=== PATIENT | female | born 1960 | race Caucasian/White ===

== ENCOUNTER 2024-10-15 10:51 | Outpatient (AMB) | payer BC, SELFPAY ==
--- NOTE | 2024-10-15 11:08 | A.OFFPC_ITS ---
Vital Signs 10/15/24 11:09 Height 5 ft 2.2 in Weight 210 lb 6 oz BMI 38.2 BP 120/70 Blood Pressure Location Lt brachial Position Sitting Pulse 78 Pulse Source Pulse Oximeter Temp 97.3 F Temp Source Temporal Artery Scan Pulse Oximetry (%) 98 Oxygen Delivery Method Room Air Intake Visit Reasons: establish care Intake Note: Patient is a new patient here to establish care for Wellness visit, Balled spot . Transferring care from [facility]. Medical records have been requested and have not received. Fire Extinguisher Mechanic Required: No C Python Developer: Not Required per policy Accompanied by: Self / Same As Patient Allergies No Known Allergies Allergy (Verified 10/15/24 11:21) Medication List - Last Reconciled 10/15/24 by Kaylyn Delgado PA-C No Known Home Meds Tobacco use date assessed: 10/15/24 Fall risk assessment: No Falls in past year Last assessed Fall Risk: 10/15/24 Dental Screening Dental Screen Date: 10/15/24 Did you have a dental visit in the last 12 months?: Yes Did you have a dental problem in the last 6 months where you did not have access to dental care?: No Was dental information given to patient?: Patient has dentist HPI establish care HPI Details 64-year-old female coming to the office with the 1st time. Presenting with hair thinning. Noteworthy findings include two observable bald spots on the side of her scalp, first identified during her hair appointment on August 13. 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 Emotional stressors are significant, including recent familial bereavements, which may play a role in her current medical concerns. Patient follows with [facility] for colonoscopy, mammogram and Pap smears. 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 1. Little interest or pleasure in doing things: not at all 2. Feeling down, depressed, or hopeless: not at all 3. Trouble falling or staying asleep, or sleeping too much: not at all 4. Feeling tired or having little energy: not at all 5. Poor appetite or overeating: not at all 6. Feeling bad about yourself - or that you are a failure or have let yourself or your family down: not at all 7. Trouble concentrating on things, such as reading the newspaper or watching television: not at all 8. Moving or speaking so slowly that other people could have noticed. Or the opposite - being so fidgety or restless that you have been moving around a lot more than usual: not at all 9. Thoughts that you would be better off or of hurting yourself in some way: not at all Total score: 0 Depression Screening Interpretation: Negative Depression Screening Done: Yes Source: Developed by Drs. Stoney Govea, Vicky Salvador, Travon Owen and colleagues, with an educational cruz from [employer]. Thrive Questionnaire Date Thrive assessed: 10/09/24 I am a: Patient What is your living situation today?: I have a steady place to live Within the past 12 months, did the food you bought not last and you didn't have the money to get more?: Never true Within the past 12 months, did you worry whether your food would run out before you got money to buy more?: Never true Do you have trouble paying for medicines?: No Do you have trouble getting transportation to medical appointments?: No Do you have trouble paying your heating and electricity bill?: No Do you have trouble taking care of your child, family member or friend?: No Do you have trouble with day-to-day activities such as bathing, preparing meals, shopping, managing finances, etc.?: No Are you currently unemployed and looking for a job?: No Are you interested in more education?: No Please select the resources that you would like help with: None Currently or been in a relationship where the following occur: No concerns reported THRIVE Score: 0 AUDIT C Alcohol Use Questionnaire (AUDIT-C) 1. How often do you have a drink containing alcohol?: Monthly or less 2. How many drinks containing alcohol do you have on a typical day when you are drinking?: 1 or 2 3. How often do you have six or more drinks on one occasion?: Never Total Score: 1 TOMMIE-7 AMB Questionnaire TOMMIE-7 Date TOMMIE - 7 assessed: 10/15/24 Feeling nervous, anxious, or on edge: 0 = Not at all Not being able to stop or control worryin = Not at all Worrying too much about different things: 0 = Not at all Trouble relaxin = Not at all Being so restless that it is hard to sit still: 0 = Not at all Becoming easily annoyed or irritable: 0 = Not at all Feeling afraid as if something awful might happen: 0 = Not at all Total TOMMIE-7 score (0-4 normal; 5-9 mild; 10-14 moderate; 15-21 severe): 0 Source: Developed by Drs. Stoney Govea, Vicky Salvador, Travon Owen and colleagues, with an educational cruz from [employer]. TOMMIE-7 Assessment Billing TOMMIE-7 Assessment Tool: TOMMIE-7 Assessment 20765 Review of Systems Const Denies body aches, Denies chills, Denies fever(s), Denies headache(s) and Denies poor appetite Eyes Reports no additional complaints ENT Denies dysphagia, Denies dizziness, Denies headache(s) and Denies odynophagia Card Denies chest pain, Denies syncope, Denies edema, Denies irregular heart rhythm, Denies lightheadedness and Denies dyspnea Resp Denies cough and Denies dyspnea GI Denies abdominal pain, Denies constipation, Denies dysphagia, Denies diarrhea, Denies nausea, Denies odynophagia and Denies vomiting Reports no additional complaints Musc Reports no additional complaints and Denies abnormal gait Skin/Breast Reports system reviewed and no additional complaints, except as documented Neuro Denies abnormal gait, Denies dizziness, Denies syncope and Denies headache(s) Psych Reports no additional complaints Physical exam (Primary Care) Vital Signs: Last Vital Signs Temp 97.3 F 10/15/24 11:09 Pulse 78 10/15/24 11:09 BP 120/70 10/15/24 11:09 Pulse Ox 98 10/15/24 11:09 Oxygen Delivery Method Room Air 10/15/24 11:09 BMI result Body Mass Index 38.2 Tobacco/Smoking Status: Tobacco use Status Tobacco use date assessed 10/15/24 10/15/24 11:09 Patient Tobacco Use Status Never used Tobacco 10/15/24 11:19 e-Cigarette/Vaping Use Never Used 10/15/24 11:19 PHQ-9: PHQ-9 Score PHQ-9: Total score 0 10/15/24 14:58 Depression Screening Interpretation: Negative Thrive Assessment: Date of Thrive Assessment Date Thrive assessed 10/09/24 10/15/24 11:09 Currently or been in a relationship where the following occur: No concerns reported Const General: cooperative, healthy appearing, comfortable and no acute distress Orientation/consciousness: patient oriented x3 HENMT Head: Yes normocephalic Ears: hearing grossly normal bilaterally General nose exam: Normal external nose present Eyes General: appearance normal, both eyes and all related structures Conjunctivae: conjunctivae normal Neck Neck: Yes full ROM and Yes no lymphadenopathy Resp Effort & Inspection: normal respiratory effort Auscultation: clear to auscultation bilaterally, no crackles, no rales, no rhonchi and no wheezes Cardio Rate: regular rate Rhythm: regular rhythm Skin Other: Areas of thin hair behind bilateral ears General skin exam: no rashes or lesions noted Neuro General: patient oriented x3 Gait exam (Neuro): Normal gait present Extrem General: Yes normal to inspection, Yes full ROM and No edema Psych Affect: normal affect Attitude: cooperative Insight: Good insight present (Psych) Judgement: Good judgement present (Psych) Coding Level of Care Code New Pt Level 4 (67129) Diagnoses Encounter to establish care Z76.89 Obesity (BMI 30-39.9) E66.9 Hair loss L65.9 Anxiety F41.9 Screening for diabetes mellitus Z13.1 Screening for hypercholesterolemia Z13.220 Additional Codes TOMMIE-7 Assessment Billing - TOMMIE-7 Assessment Tool: TOMMIE-7 Assessment 64153 ([id number]) Assessment & Plan Assessment & Plan (1) Encounter to establish care: Code(s): Z76.89 - Persons encountering health services in other specified circumstances Category: Medical Plan: I ordered for routine blood work to be completed before next visit. She will plan to follow up in 2 months for annual exam or sooner if needed. We discussed screening recommendations and patient is up-to-date mainly through her [facility] providers. (2) Obesity (BMI 30-39.9): Code(s): E66.9 - Obesity, unspecified Category: Medical Plan: Healthy diet and regular exercise is encouraged. Patient inquired about the use of GLP 1 injections today. We discussed at length risks and benefits of this medications as well as side effects and monitoring scheduled. Patient was provided with informational packet and she will reach out she would like to try these medications. (3) Hair loss: Code(s): L65.9 - Nonscarring hair loss, unspecified Category: Medical Plan: Patient having hair thinning. On exam there are 2 areas of thin hair without any obvious demarcation or thickening of the skin. Low suspicion for tinea infection at this time. Plan to obtain evaluation through Dermatology and referral was placed today. Patient was also provided with list of local dermatology offices to reach out if she should need a sooner appointment. Patient may also use savv-vrw-tjndwka minoxidil in the meantime. (4) Anxiety: Code(s): F41.9 - Anxiety disorder, unspecified Category: Medical Plan: Patient has history of anxiety related to traumatic loss of family members. She feels her anxiety is well managed at this time and declines counseling services or medical management. (5) Screening for diabetes mellitus: Code(s): Z13.1 - Encounter for screening for diabetes mellitus Category: Medical Plan: Ordered for blood work (6) Screening for hypercholesterolemia: Code(s): Z13.220 - Encounter for screening for lipoid disorders Category: Medical Plan: Blood work was ordered today. Plan The patient will follow up with dermatology to investigate and manage her scalp and hair thinning concerns, with a short wait time expected at [facility]. I suggested the use of minoxidil foam to facilitate potential hair regrowth. Additionally, I informed the patient about current treatments available for weight management, emphasizing lifestyle changes and providing detailed information on weight loss injections to consider in the future. No immediate plan is necessary concerning her 's health or expressed emotional concerns, which she identifies as well-managed with her existing support system. I reinforced the importance of maintaining a healthy lifestyle and reviewed nutritional habits contributing to her health. Plan to follow up in 2 months for annual exam. This note was constructed using voice recognition software. While every effort has been made to ensure accuracy and wirer street light, still areas may have been included sometimes these areas may affect the content or meeting of the given symptoms. Total time spent caring for the patient today was 30 minutes. This includes time spent before the visit reviewing the chart, time spent during the visit, and time spent after the visit and documentation. Patient was informed and verbally consented to the use of an ambient scribe for clinic note documentation during this visit. Orders: Orders Complete Blood Count Auto Diff Today Z00.00 - Encounter for general adult medical examination without abnormal findings Vitamin B12 and Folate Today Z00.00 - Encounter for general adult medical examination without abnormal findings Free T4 (Free Thyroxine) Today Z00.00 - Encounter for general adult medical examination without abnormal findings IRON PROFILE Today L65.9 - Nonscarring hair loss, unspecified Hemoglobin A1c Today Z13.1 - Encounter for screening for diabetes mellitus Comprehensive Met. Panel Today Z00.00 - Encounter for general adult medical examination without abnormal findings Lipid Panel Today Z13.220 - Encounter for screening for lipoid disorders Vitamin D 25-OH Total Today Z00.00 - Encounter for general adult medical examination without abnormal findings TSH reflex Free T4 Today Z00.00 - Encounter for general adult medical examination without abnormal findings Referrals Dermatology Referral L65.9 - Nonscarring hair loss, unspecified
[2024-10-15 11:09] VITALS: BP 120/70; PULSE 78; TEMP 36.3; O2SAT 98; BMI 38.2
== END 2024-10-15 12:04 | disposition home or self-care (01) ==
LOC: HO.HMCH 10:52
DX: F41.9 Anxiety disorder, unspecified (principal); Z76.89 Persons encountering health services in other specified circumstances; E66.9 Obesity, unspecified; Z68.38 Body mass index [BMI] 38.0-38.9, adult; L65.9 Nonscarring hair loss, unspecified; Z13.1 Encounter for screening for diabetes mellitus; Z13.220 Encounter for screening for lipoid disorders

== ENCOUNTER → 2024-10-15 10:51 | Outpatient (BNVA) | payer BC, SELFPAY | DX: E66.9 Obesity, unspecified (principal); L65.9 Nonscarring hair loss, unspecified; F41.9 Anxiety disorder, unspecified; Z76.89 Persons encountering health services in other specified circumstances | CPT/HCPCS: 96127 ==

== ENCOUNTER 2024-12-10 08:03 | Outpatient (REF) | payer BC, SELFPAY ==
--- OUTSIDE RECORDS SUMMARY | 2024-08-29 11:30 | XMS_ITS ---
Author Organization [facility], [place] Address [address] [facility] [address] [place] [address] Care Team Providers Care Research & Insights Executive Name Role Phone Zeeshan Heller Unavailable [phone] REASON FOR VISIT Follow-up Appt Encounters Encounter Location Date Provider Diagnosis [facility], [address] [address] 08/29/2024 Zeeshan Heller Plan Of Treatment No Information Progress Notes * TIRNAMICHELLE VELASCOINDOB:1960 (64 yo F)Acc No.[id number]:08/29/2024 Progress Notes Patient: HERNANDO DIAS Provider: Alberto ZHANG :1960 A ge:64 Y S ex:Female Date:08/29/2024 Address:[address] [place], [place] [phone] Subjective: * Chief Complaints: * F ollow-up Appt * Ocular Surgical History: Objective: Vision Examination: * Electronic signature of Ismael Heller PA-C on 12/10/2024 at 08:07 AM EDT Sign off status: Pending * Provider: Alberto ZHANG Date: 08/29/2024 Generated for Lukasz morris/Natacha/eTransmitting on: 0 12/10/2024 08:07 AM EDT
[2024-12-10 08:18] LABS: MANUAL DIFF FLAG NO
[2024-12-10 08:31] LABS: Hematocrit 39.4 % (37.0-47.0); Hemoglobin 12.9 g/dl (12.0-16.0); Imm Gran Abs Auto 0.01 X10*3/uL (0.00-0.03); Imm Gran Pct Auto 0.1 % (0.0-0.4); Lymphocytes Absolute Auto 1.6 X10*3/uL (1.2-4.9); Mean Corpuscular HGB Conc 32.7 g/dl (31.0-35.0); Mean Corpuscular Hemoglobin 30.6 pg (27.0-33.0); Mean Corpuscular Volume 93.6 fL (80.0-98.0); NRBC Abs Auto 0.000 X10*3/uL (0.0-0.012); NRBC Pct Auto 0.0 /100WBC (0.0-0.2); Platelet Count 278 X10*3/uL (160-400); Red Blood Count 4.21 X10*6/uL (4.20-5.50); White Blood Count 6.7 X10*3/uL (4.8-10.8)
[2024-12-10 08:38] LABS: Hemoglobin A1C 116.7479 umol/L; Total Hemoglobin (HGBA1C) 3449.7435 umol/L
[2024-12-10 09:28] LABS: Alanine Aminotransferase 28 U/L (0-31); Albumin Level 4.2 g/dL (3.5-5.0); Alkaline Phosphatase 83 U/L (39-117); Anion Gap 10 (12-20); Aspartate Amino Transferase 24 U/L (5-31); Blood Urea Nitrogen 20 mg/dL (9-16); Calcium 9.4 mg/dL (8.4-10.2); Carbon Dioxide 28 mmol/L (22-29); Chloride 110 mmol/L (96-108); Cholesterol 220 mg/dL (<200); Estimated Glomerular Filt Rate > 60; HDL Cholesterol 64 mg/dL (>40); Iron 82 mcg/dL (30-160); Percent Iron Saturation 22 % (15-50); Potassium 4.7 mmol/L (3.3-5.1); Sodium 143 mmol/L (135-145); Total Iron Binding Capacity 367 mcg/dL (228-428); Total Protein 7.3 g/dL (6.5-8.0); Triglycerides 89 mg/dL (<150); Unsaturated Iron Binding 285 ug/dL
[2024-12-10 09:43] LABS: Free T4 (Free Thyroxine) 0.99 ng/dL (0.71-1.85)
[2024-12-10 09:52] LABS: Folate 12.0 ng/mL (> or = 4.0); Vitamin B12 706 pg/mL (200-900)
== END 2024-12-10 08:04 | disposition home or self-care (01) ==
LOC: HO.LAB 08:03
DX: L65.9 Nonscarring hair loss, unspecified (principal); Z00.00 Encounter for general adult medical examination without abnormal findings; Z13.1 Encounter for screening for diabetes mellitus; Z13.220 Encounter for screening for lipoid disorders
CPT/HCPCS: 36415; 80053; 80061; 82306; 82607; 82746; 83036; 83540; 84439; 84443; 85025

== ENCOUNTER 2024-12-18 11:08 | Outpatient (AMB) | payer BC, SELFPAY ==
--- OUTSIDE RECORDS SUMMARY | 2024-08-29 11:30 | XMS_ITS ---
Author Organization [facility], [place] Address [address] [facility] [address] [place] [address] Care Team Providers Care Associate Professor Computer Science Name Role Phone Zeeshan Heller Unavailable [phone] REASON FOR VISIT Follow-up Appt Encounters Encounter Location Date Provider Diagnosis [facility], [address] [address] 08/29/2024 Zeeshan Heller Plan Of Treatment No Information Progress Notes * TRINAMICHELLE VELASCOINDOB:1960 (64 yo F)Acc No.[id number]:08/29/2024 Progress Notes Patient: HERNANDO DIAS Provider: Alberto ZHANG :1960 A ge:64 Y S ex:Female Date:08/29/2024 Address:[address] [place], [place] [phone] Subjective: * Chief Complaints: * F ollow-up Appt * Ocular Surgical History: Objective: Vision Examination: * Electronic signature of Ismael Heller PA-C on 12/18/2024 at 11:58 AM EDT Sign off status: Pending * Provider: Alberto ZHANG Date: 08/29/2024 Generated for Lukasz morris/Natacha/eTransmitting on: 0 12/18/2024 11:58 AM EDT
--- NOTE | 2024-12-18 11:09 | A.OFFPC_ITS ---
Vital Signs 3 12/18/24 11:11 Height 5 ft 2.22 in Weight 210 lb BMI 38.1 BP 126/70 Blood Pressure Location Lt brachial Position Sitting Pulse 68 Pulse Source Pulse Oximeter Oxygen Delivery Method Room Air Intake Visit Reasons: annual exam Direct Care Counselor Required: No Accompanied by: Self / Same As Patient Allergies No Known Allergies Allergy (Verified 12/18/24 11:37) Medication List - Last Reconciled 12/18/24 by Kaylyn Delgado PA-C No Known Home Meds Tobacco use date assessed: 12/18/24 Fall risk assessment: No Falls in past year Last assessed Fall Risk: 12/18/24 Dental Screening Dental Screen Date: 12/18/24 Did you have a dental visit in the last 12 months?: Yes Did you have a dental problem in the last 6 months where you did not have access to dental care?: No Was dental information given to patient?: Patient has dentist HPI annual exam 2 HPI0 Details 64 year old female with past medical his tory of anxiety and obesity last seen 10/2024 coming in for annual exam. The patient was informed of high cholesterol levels despite following a Mediterranean diet and regular exercise. Her LDL cholesterol was slightly elevated at 139 mg/dL, while triglycerides and HDL were within normal limits. The patient had a mildly elevated TSH level of 4.3, with normal thyroid hormone levels. She was advised that treatment is not necessary unless TSH exceeds 10. The patient reported bright red blood in her stool, likely due to hemorrhoids. She experienced itching and pain upon wiping, and preparation H was used for relief. The patient experienced weight gain despite adhering to a healthy diet and exercise regimen. She expressed interest in weight loss medication due to the impact of weight on her knees and back. Patient follows with [facility] for mammograms, pap smears and previously colonoscopy. [facility] Surgical History History of 2 sections No pertinent past surgical history Social History Housing: House Alcohol intake: current Alcohol intake frequency: a few times a week Patient Tobacco Use Status: Never used Tobacco e-Cigarette/Vaping Use: Never Used Second Hand Smoke Exposure: No service: No Current occupational status: employed Current occupation: [employer] Cognitive needs: No Hearing needs: No Vision needs: No Questionnaire PHQ-9 Over the last 2 weeks, how often have you been bothered by any of the following problems? 1. Little interest or pleasure in doing things: not at all 2. Feeling down, depressed, or hopeless: not at all 3. Trouble falling or staying asleep, or sleeping too much: not at all 4. Feeling tired or having little energy: not at all 5. Poor appetite or overeating: not at all 6. Feeling bad about yourself - or that you are a failure or have let yourself or your family down: not at all 7. Trouble concentrating on things, such as reading the newspaper or watching television: not at all 8. Moving or speaking so slowly that other people could have noticed. Or the opposite - being so fidgety or restless that you have been moving around a lot more than usual: not at all 9. Thoughts that you would be better off or of hurting yourself in some way: not at all Total score: 0 Source: Developed by Drs. Stoney Govea, Vicky Salvador, Travon Owen and colleagues, with an educational cruz from [employer]. Thrive Questionnaire Date Thrive assessed: 12/18/24 I am a: Patient What is your living situation today?: I have a steady place to live Within the past 12 months, did the food you bought not last and you didn't have the money to get more?: Never true Within the past 12 months, did you worry whether your food would run out before you got money to buy more?: Never true Do you have trouble paying for medicines?: No Do you have trouble getting transportation to medical appointments?: No Do you have trouble paying your heating and electricity bill?: No Do you have trouble taking care of your child, family member or friend?: No Do you have trouble with day-to-day activities such as bathing, preparing meals, shopping, managing finances, etc.?: No Are you currently unemployed and looking for a job?: No Are you interested in more education?: No Please select the resources that you would like help with: None THRIVE Score: 0 TOMMIE-7 AMB Questionnaire TOMMIE-7 Date TOMMIE - 7 assessed: 12/18/24 Feeling nervous, anxious, or on edge: 0 = Not at all Not being able to stop or control worryin = Not at all Worrying too much about different things: 0 = Not at all Trouble relaxin = Not at all Being so restless that it is hard to sit still: 0 = Not at all Becoming easily annoyed or irritable: 0 = Not at all Feeling afraid as if something awful might happen: 0 = Not at all Total TOMMIE-7 score (0-4 normal; 5-9 mild; 10-14 moderate; 15-21 severe): 0 Source: Developed by Drs. Stoney Govea, Vicky Salvador, Travon Owen and colleagues, with an educational cruz from [employer]. TOMMIE-7 Assessment Billing TOMMIE-7 Assessment Tool: TOMMIE-7 Assessment 38044 Review of Systems Const Denies body aches, Denies chills, Denies fever(s), Denies headache(s) and Denies poor appetite Eyes Reports no additional complaints ENT Denies dysphagia, Denies dizziness, Denies headache(s) and Denies odynophagia Card Denies chest pain, Denies syncope, Denies edema, Denies irregular heart rhythm, Denies lightheadedness and Denies dyspnea Resp Denies cough and Denies dyspnea GI Denies abdominal pain, Denies constipation, Denies dysphagia, Denies diarrhea, Denies nausea, Denies odynophagia and Denies vomiting Reports no additional complaints Musc Reports no additional complaints and Denies abnormal gait Skin/Breast Reports system reviewed and no additional complaints, except as documented Neuro Denies abnormal gait, Denies dizziness, Denies syncope and Denies headache(s) Psych Reports no additional complaints Physical exam (Primary Care) Vital Signs: Last Vital Signs Pulse 68 12/18/24 11:11 BP 126/70 12/18/24 11:11 Oxygen Delivery Method Room Air 12/18/24 11:11 BMI result Body Mass Index 38.1 Tobacco/Smoking Status: Tobacco use Status Tobacco use date assessed 12/18/24 12/18/24 11:11 Patient Tobacco Use Status Never used Tobacco 12/18/24 11:11 e-Cigarette/Vaping Use Never Used 12/18/24 11:11 PHQ-9: PHQ-9 Score PHQ-9: Total score 0 12/18/24 11:38 Thrive Assessment: Date of Thrive Assessment Date Thrive assessed 12/18/24 12/18/24 11:11 Const General: cooperative, healthy appearing, comfortable and no acute distress Orientation/consciousness: patient oriented x3 HENMT Head: Yes normocephalic Ears: hearing grossly normal bilaterally General nose exam: Normal external nose present Eyes General: appearance normal, both eyes and all related structures Conjunctivae: conjunctivae normal Neck Neck: Yes full ROM and Yes no lymphadenopathy Resp Effort & Inspection: normal respiratory effort Auscultation: clear to auscultation bilaterally, no crackles, no rales, no rhonchi and no wheezes Cardio Rate: regular rate Rhythm: regular rhythm Skin General skin exam: no rashes or lesions noted Full body images: 2 1. Nontender non erythematous raised skin lesion Neuro General: patient oriented x3 Gait exam (Neuro): Normal gait present Extrem General: Yes normal to inspection, Yes full ROM and No edema Psych Affect: normal affect Attitude: cooperative Insight: Good insight present (Psych) Judgement: Good judgement present (Psych) Coding Level of Care Code Est Pt Level 4 (82985) Diagnoses Hypercholesterolemia E78.00 Obesity (BMI 30-39.9) E66.9 Hair loss L65.9 Skin lesion L98.9 Colon cancer screening Z12.11 Blood in the stool K92.1 Additional Codes TOMMIE-7 Assessment Billing - TOMMIE-7 Assessment Tool: TOMMIE-7 Assessment 85847 ([id number]) Assessment & Plan Assessment & Plan (1) Hypercholesterolemia: Comment: ASCVD risk 4.9% 12/2024 Code(s): E78.00 - Pure hypercholesterolemia, unspecified Category: Medical Plan: Avoid foods that are high in cholesterol such as red meat, fried foods, eggs and baked goods. Triglyceride goal of less than 150 and LDL goal of less than 130. Discussed dietary and lifestyle modification. Plan to repeat labs in 3 months. (2) Obesity (BMI 30-39.9): Code(s): E66.9 - Obesity, unspecified Category: Medical Plan: Healthy diet and regular exercise is encouraged. Patient was counseled today on the risks and benefits of GLP-1 injections as well as the dosing schedule. She has no family history or personal history of thyroid disease and no gallbladder disease. Discussed with the patient the potential GI side effects of this medication. Plan to have repeat blood work after one month of therapy to monitor kidney and liver function before increasing the dose of this medication. Follow up in 2 months for a weight check. (3) Hair loss: Code(s): L65.9 - Nonscarring hair loss, unspecified Category: Medical Plan: Patient has not yet heard from Dermatology due to insurance issues. She will continue to reach out to them for an appointment. (4) Skin lesion: Code(s): L98.9 - Disorder of the skin and subcutaneous tissue, unspecified Category: Medical Plan: New skin lesion noted on the chest. See above plan (5) Colon cancer screening: Code(s): Z12.11 - Encounter for screening for malignant neoplasm of colon Category: Medical Plan: Patient is overdue for colon cancer screening and has not yet heard back from [facility] to schedule in his [facility]. Referral was placed today to GI (6) Blood in the stool: Code(s): K92.1 - Melena Category: Medical Plan: Reporting bright red blood in the stool I discussed with the patient's likely hemorrhoids however given she is due for colonoscopy I did update the referral to GI to reflect this as well. Plan The patient will continue with her current Mediterranean diet and exercise regimen to manage her cholesterol levels. Although her LDL cholesterol is slightly elevated, her overall cardiovascular risk remains low, and medication is not recommended at this time. We will re-evaluate her cholesterol levels in a few months to monitor any changes. For her mildly elevated TSH, no immediate treatment is necessary as her thyroid hormone levels are normal. We will monitor her thyroid function periodically to ensure stability. The patient expressed interest in weight loss medication due to her recent weight gain and its impact on her knees and back. We discussed the potential benefits and side effects of medications such as Mounjaro, and a prescription will be sent to the pharmacy to check for insurance coverage. If approved, she will start the medication and follow up in two months for a weight check and further evaluation. Regarding her gastrointestinal symptoms, a referral for a colonoscopy has been made to investigate the cause of bright red blood in her stool, likely due to hemorrhoids. This procedure is also part of her routine preventative care, given the delay since her last screening in 2014. This note was constructed using voice recognition software. While every effort has been made to ensure accuracy and ip technology transactions attorney, still areas may have been included sometimes these areas may affect the content or meeting of the given symptoms. Total time spent caring for the patient today was 45 minutes. This includes time spent before the visit reviewing the chart, time spent during the visit, and time spent after the visit and documentation. Patient was informed and verbally consented to the use of an ambient scribe for clinic note documentation during this visit. Orders: Orders 2 Lipid Panel 3 Months E78.00 - Pure hypercholesterolemia, unspecified Referrals 2 Gastroenterology Referral K92.1 - Melena, Z12.11 - Encounter for screening for malignant neoplasm of colon Medications: New 2 tirzepatide (Mounjaro) for 4 weeks 2.5 mg (0.5 mL) subcut QWEEK 2 mL 0RF
[2024-12-18 11:11] VITALS: BP 126/70; PULSE 68; BMI 38.1
== END 2024-12-18 12:28 | disposition home or self-care (01) ==
DX: E78.00 Pure hypercholesterolemia, unspecified (principal); E66.9 Obesity, unspecified; Z68.38 Body mass index [BMI] 38.0-38.9, adult; L65.9 Nonscarring hair loss, unspecified; L98.9 Disorder of the skin and subcutaneous tissue, unspecified; Z12.11 Encounter for screening for malignant neoplasm of colon; K92.1 Melena

== ENCOUNTER → 2024-12-18 11:08 | Outpatient (BNVA) | payer BC, SELFPAY | DX: E78.00 Pure hypercholesterolemia, unspecified (principal); E66.9 Obesity, unspecified; Z68.38 Body mass index [BMI] 38.0-38.9, adult; L65.9 Nonscarring hair loss, unspecified; L98.9 Disorder of the skin and subcutaneous tissue, unspecified; K92.1 Melena; Z13.39 Encounter for screening examination for other mental health and behavioral disorders; Z13.30 Encounter for screening examination for mental health and behavioral disorders, unspecified | CPT/HCPCS: 96127 ==

== ENCOUNTER 2025-03-02 07:08 | Outpatient (REF) | payer SELFPAY ==
--- OUTSIDE RECORDS SUMMARY | 2024-08-29 11:30 | XMS_ITS ---
Author Organization [facility], [place] Address [address] [facility] [address] [place] [address] Care Team Providers Care Steam Tender Name Role Phone Zeeshan Heller Unavailable [phone] REASON FOR VISIT Follow-up Appt Encounters Encounter Location Date Provider Diagnosis [facility], [address] [address] 08/29/2024 Zeeshan Heller Plan Of Treatment No Information Progress Notes * TRINAMICHELLE VELASCOINDOB:1960 (65 yo F)Acc No.[id number]:08/29/2024 Progress Notes Patient: HERNANDO DIAS Provider: Alberto ZHANG :1960 A ge:64 Y S ex:Female Date:08/29/2024 Address:[address] [place], [place] [phone] Subjective: * Chief Complaints: * F ollow-up Appt * Ocular Surgical History: Objective: Vision Examination: * Electronic signature of Ismael Heller PA-C on 03/02/2025 at 07:11 AM EDT Sign off status: Pending * Provider: Alberto ZHANG Date: 0 08/29/2024 Generated for Lukasz morris/Natacha/eTransmitting on: 0 03/02/2025 07:11 AM EDT
--- OUTSIDE RECORDS SUMMARY | 2024-09-03 10:00 | XMS_ITS ---
Author Organization [facility] [place] Address [address] [facility] [address] [place] [address] Care Team Providers Care Clinical Engineering Director Name Role Phone Migration, Provider Unavailable Unavailable REASON FOR VISIT Follow-up Appt Encounters Encounter Location Date Provider Diagnosis [facility], [address] [place] [address] 09/03/2024 Provider Migration Plan Of Treatment No Information Progress Notes * MICHELLE SCHMIDTINDOB:1960 (65 yo F)Acc No.[id number]:09/03/2024 Progress Notes Patient: HERNANDO DIAS Provider: Ricky tamayo Migration :1960 A ge:64 Y S ex:Female Date:09/03/2024 Address:[address] [place], [place] [phone] Subjective: * Chief Complaints: * F ollow-up Appt * Ocular Surgical History: Objective: Vision Examination: * Electronic signature of Prov ider Migration on 03/02/2025 at 07:11 AM EDT Sign off status: Pending * Provider: Ricky tamayo Migration Date: 0 09/03/2024 Generated for Lukasz morris/Natacha/eTgalindosmitting on: 0 03/02/2025 07:11 AM EDT
--- OUTSIDE RECORDS SUMMARY | 2024-09-03 10:00 | XMS_ITS ---
Author Organization [facility], [place] Address [address] [facility] [address] [place] [address] Care Team Providers Care Brick Loader Name Role Phone Zeeshan Heller Unavailable [phone] REASON FOR VISIT Follow-up Appt Encounters Encounter Location Date Provider Diagnosis [facility], [address] [place] [phone] 09/03/2024 Zeeshan Heller Plan Of Treatment No Information Progress Notes * MICHELLE SCHMIDTINDOB:1960 (65 yo F)Acc No.[id number]:09/03/2024 Progress Notes Patient: HERNANDO DIAS Provider: Alberto ZHANG :1960 A ge:64 Y S ex:Female Date:09/03/2024 Address:[address] [place], [place] [phone] Subjective: * Chief Complaints: * F ollow-up Appt * Ocular Surgical History: Objective: Vision Examination: * Electronic signature of Ismael Heller PA-C on 03/02/2025 at 07:11 AM EDT Sign off status: Pending * Provider: Alberto ZHANG Date: 0 09/03/2024 Generated for Lukasz morris/Natacha/eTransmitting on: 0 03/02/2025 07:11 AM EDT
--- OUTSIDE RECORDS SUMMARY | 2025-03-02 07:11 | XMS_ITS ---
Author Name [facility] Organization Unknown Care Team Organization Name Specialty Phone Email Start Date End Da deandre [facility] 10/09/2022
--- OUTSIDE RECORDS SUMMARY | 2025-03-02 07:12 | XMS_ITS | Patient Health Record ---
Author Organization [facility] [place] Address [address] [facility] [address] [place] [address] Care Team Providers Care Line Construction Superintendent Name Role Phone Zeeshan Heller Unavailable [phone] Migration, Provider Unavailable Unavailable Reason For Referral No Information Encounters Encounter Location Date Provider Diagnosis [facility] [address] [address] 08/29/2024 Zeeshan Heller [facility] [address] [address] 09/03/2024 Provider Migration [facility] [address] [address] 09/03/2024 Zeeshan Heller Plan Of Treatment No Information Insurance Providers Payer Name Payer Address Payer Phone Subscriber Number Group Number Insured Name Patient Relationship to Insured Coverage Start Date Coverage End Date [employer] [facility] [address] [place] [phone] [id number] HERNANDO SCHMIDT Self - patient is the insured
[2025-03-02 08:45] LABS: Cholesterol 218 mg/dL (<200); HDL Cholesterol 65 mg/dL (>40); Triglycerides 104 mg/dL (<150)
== END 2025-03-02 07:09 | disposition home or self-care (01) ==
LOC: HO.LAB 07:08
DX: E78.00 Pure hypercholesterolemia, unspecified (principal)
CPT/HCPCS: 36415; 80061

== ENCOUNTER 2025-03-06 16:01 | Outpatient (AMB) | payer MEDICARE, SELFPAY ==
--- OUTSIDE RECORDS SUMMARY | 2024-08-29 11:30 | XMS_ITS ---
Author Organization [facility], [place] Address [address] [facility] [address] [place] [address] Care Team Providers Care Sailor Name Role Phone Zeeshan Heller Unavailable [phone] REASON FOR VISIT Follow-up Appt Encounters Encounter Location Date Provider Diagnosis [facility], [address] [place] [phone] 08/29/2024 Zeeshan Heller Plan Of Treatment No Information Progress Notes * TRINAMICHELLE VELASCOINDOB:1960 (65 yo F)Acc No.[id number]:08/29/2024 Progress Notes Patient: HERNANDO DIAS Provider: Alberto ZHANG :1960 A ge:64 Y S ex:Female Date:08/29/2024 Address:[address] [place], [place] [phone] Subjective: * Chief Complaints: * F ollow-up Appt * Ocular Surgical History: Objective: Vision Examination: * Electronic signature of Ismael Heller PA-C on 03/06/2025 at 04:04 PM EDT Sign off status: Pending * Provider: Alberto ZHANG Date: 0 08/29/2024 Generated for Lissethi alexandra/Natacha/eTransmitting on: 1 04:04 PM EDT
--- OUTSIDE RECORDS SUMMARY | 2024-09-03 10:00 | XMS_ITS ---
Author Organization [facility], [place] Address [address] [facility] [address] [place] [address] Care Team Providers Care Backing In Machine Tender Name Role Phone Zeeshan Heller Unavailable [phone] REASON FOR VISIT Follow-up Appt Encounters Encounter Location Date Provider Diagnosis [facility], [address] [place] [phone] 09/03/2024 Zeeshan Heller Plan Of Treatment No Information Progress Notes * MICHELLE SCHMIDTINDOB:1960 (65 yo F)Acc No.[id number]:09/03/2024 Progress Notes Patient: HERNANDO DIAS Provider: Alberto ZHANG :1960 A ge:64 Y S ex:Female Date:09/03/2024 Address:[address] [place], [place] [phone] Subjective: * Chief Complaints: * F ollow-up Appt * Ocular Surgical History: Objective: Vision Examination: * Electronic signature of Ismael Heller PA-C on 03/06/2025 at 04:04 PM EDT Sign off status: Pending * Provider: Alberto ZHANG Date: 0 09/03/2024 Generated for Lukasz morris/Natacha/eTransmitting on: 1 04:04 PM EDT
--- OUTSIDE RECORDS SUMMARY | 2024-09-03 10:00 | XMS_ITS ---
Author Organization [facility], [place] Address [address] [facility] [address] [place] [address] Care Team Providers Care Loading Shovel Oiler Name Role Phone Migration, Provider Unavailable Unavailable REASON FOR VISIT Follow-up Appt Encounters Encounter Location Date Provider Diagnosis [facility], [address] [place] [phone] 09/03/2024 Provider Migration Plan Of Treatment No Information Progress Notes * MICHELLE SCHMIDTINDOB:1960 (65 yo F)Acc No.[id number]:09/03/2024 Progress Notes Patient: HERNANDO DIAS Provider: Ricky tamayo Migration :1960 A ge:64 Y S ex:Female Date:09/03/2024 Address:[address] [place], [place] [phone] Subjective: * Chief Complaints: * F ollow-up Appt * Ocular Surgical History: Objective: Vision Examination: * Electronic signature of Prov ider Migration on 03/06/2025 at 04:04 PM EDT Sign off status: Pending * Provider: Ricky tamayo Migration Date: 0 09/03/2024 Generated for Lukasz morris/Natacha/eTgalindosmitting on: 1 04:04 PM EDT
--- OUTSIDE RECORDS SUMMARY | 2025-03-06 16:05 | XMS_ITS | Patient Health Record ---
Author Organization [facility] [place] Address [address] [facility] [address] [place] [address] Care Team Providers Care Game Developer Name Role Phone Zeeshan Heller Unavailable [phone] Migration, Provider Unavailable Unavailable Reason For Referral No Information Encounters Encounter Location Date Provider Diagnosis [facility] [address] [phone] 08/29/2024 Zeeshan Heller [facility] [address] [address] 09/03/2024 Provider Migration [facility] [address] [address] 09/03/2024 Zeeshan Heller Plan Of Treatment No Information Insurance Providers Payer Name Payer Address Payer Phone Subscriber Number Group Number Insured Name Patient Relationship to Insured Coverage Start Date Coverage End Date [facility] [facility] [address] [place] [phone] [id number] HERNANDO SCHMIDT Self - patient is the insured
[2025-03-06 16:09] VITALS: BP 136/88; PULSE 66; TEMP 36.2; O2SAT 98; BMI 39.8
--- NOTE | 2025-03-06 16:09 | A.OFFPC_ITS ---
Vital Signs 03/06/25 16:09 Height 5 ft 2.2 in Weight 219 lb 2 oz BMI 39.8 BP 136/88 Blood Pressure Location Lt brachial Position Sitting Pulse 66 Pulse Source Pulse Oximeter Temp 97.1 F Temp Source Temporal Artery Scan Pulse Oximetry (%) 98 Oxygen Delivery Method Room Air Intake Visit Reasons: PE Allergies No Known Allergies Allergy (Verified 03/06/25 16:12) Tobacco use date assessed: 03/06/25 Fall risk assessment: No Falls in past year Last assessed Fall Risk: 03/06/25 Dental Screening Dental Screen Date: 03/06/25 Did you have a dental visit in the last 12 months?: Yes Did you have a dental problem in the last 6 months where you did not have access to dental care?: No Was dental information given to patient?: Patient has dentist HPI PE HPI Details 65 year old female with past medical his tory of anxiety and obesity last seen 12/2024 coming in for annual exam. Presenting with an annual wellness examination and management of obesity. Reports progressive weight gain despite dietary modifications and increased physical activity, including walking 10,000 steps daily. Concerned about weight gain and its impact on health, fearing a trajectory similar to her mother's obesity. Experiencing anxiety, particularly related to weight and insurance issues regarding medication coverage. mammogram: Henny colonoscopy: GI appt upcoming pap smears: Henny vaccines: [facility] Surgical History History of 2 sections No pertinent past surgical history Social History Housing: House Alcohol intake: current Alcohol intake frequency: a few times a week Patient Tobacco Use Status: Never used Tobacco e-Cigarette/Vaping Use: Never Used Second Hand Smoke Exposure: No service: No Current occupational status: employed Current occupation: [employer] Cognitive needs: No Hearing needs: No Vision needs: No Questionnaire PHQ-9 Over the last 2 weeks, how often have you been bothered by any of the following problems? 1. Little interest or pleasure in doing things: not at all 2. Feeling down, depressed, or hopeless: not at all 3. Trouble falling or staying asleep, or sleeping too much: not at all 4. Feeling tired or having little energy: not at all 5. Poor appetite or overeating: not at all 6. Feeling bad about yourself - or that you are a failure or have let yourself or your family down: not at all 7. Trouble concentrating on things, such as reading the newspaper or watching television: not at all 8. Moving or speaking so slowly that other people could have noticed. Or the op posite - being so fidgety or restless that you have been moving around a lot more than usual: not at all 9. Thoughts that you would be better off or of hurting yourself in some way: not at all Total score: 0 Source: Developed by Drs. Stoney Govea, Vicky aSlvador, Travon Owen and colleagues, with an educational cruz from [employer]. Thrive Questionnaire Date Thrive assessed: 10/09/24 I am a: Patient What is your living situation today?: I have a steady place to live Within the past 12 months, did the food you bought not last and you didn't have the money to get more?: Never true Within the past 12 months, did you worry whether your food would run out before you got money to buy more?: Never true Do you have trouble paying for medicines?: No Do you have trouble getting transportation to medical appointments?: No Do you have trouble paying your heating and electricity bill?: No Do you have trouble taking care of your child, family member or friend?: No Do you have trouble with day-to-day activities such as bathing, preparing meals, shopping, managing finances, etc.?: No Are you currently unemployed and looking for a job?: No Are you interested in more education?: No Please select the resources that you would like help with: None Currently or been in a relationship where the following occur: No concerns reported THRIVE Score: 0 AUDIT C Alcohol Use Questionnaire (AUDIT-C) 1. How often do you have a drink containing alcohol?: Monthly or less 2. How many drinks containing alcohol do you have on a typical day when you are drinking?: 1 or 2 3. How often do you have six or more drinks on one occasion?: Never Total Score: 1 TOMMIE-7 AMB Questionnaire TOMMIE-7 Date TOMMIE - 7 assessed: 12/18/24 Feeling nervous, anxious, or on edge: 0 = Not at all Not being able to stop or control worryin = Not at all Worrying too much about different things: 0 = Not at all Trouble relaxin = Not at all Being so restless that it is hard to sit still: 0 = Not at all Becoming easily annoyed or irritable: 0 = Not at all Feeling afraid as if something awful might happen: 0 = Not at all Total TOMMIE-7 score (0-4 normal; 5-9 mild; 10-14 moderate; 15-21 severe): 0 Source: Developed by Drs. Stoney Govea, Vicky Salvador, Travon Owen and colleagues, with an educational cruz from [employer]. Review of Systems Const Denies body aches, Denies fatigue, Denies fever(s), Denies frequent falls, Denies headache(s) and Denies weakness Eyes Reports no additional complaints and Denies change in vision ENT Denies dysphagia, Denies dizziness, Denies facial pain, Denies headache(s), Denies nasal congestion and Denies odynophagia Card Denies chest pain, Denies syncope, Denies irregular heart rhythm, Denies leg edema, Denies lightheadedness and Denies dyspnea Resp Denies cough and Denies dyspnea GI Denies constipation, Denies dysphagia, Denies dyspepsia, Denies diarrhea, Denies nausea, Denies odynophagia and Denies vomiting Denies urinary frequency, Denies dysuria, Denies urinary hesitancy and Denies urinary urgency Musc Denies back pain and Denies myalgias Skin/Breast Reports system reviewed and no additional complaints, except as documented Neuro Denies dizziness, Denies syncope, Denies frequent falls, Denies headache(s) and Denies weakness Psych Reports no additional complaints Endo Denies fatigue Physical exam (Primary Care) Vital Signs: Last Vital Signs Temp 97.1 F 03/06/25 16:09 Pulse 66 03/06/25 16:09 BP 136/88 03/06/25 16:09 Pulse Ox 98 03/06/25 16:09 Oxygen Delivery Method Room Air 03/06/25 16:09 BMI result Body Mass Index 39.8 Tobacco/Smoking Status: Tobacco use Status Tobacco use date assessed 03/06/25 03/06/25 16:13 Patient Tobacco Use Status Never used Tobacco 03/06/25 16:13 e-Cigarette/Vaping Use Never Used 03/06/25 16:13 PHQ-9: PHQ-9 Score PHQ-9: Total score 0 03/06/25 16:13 Thrive Assessment: Date of Thrive Assessment Date Thrive assessed 10/09/24 03/06/25 16:13 Currently or been in a relationship where the following occur: No concerns reported Const General: cooperative, healthy appearing, comfortable and no acute distress Orientation/consciousness: patient oriented x3 HENMT Head: Yes normocephalic Ears: hearing grossly normal bilaterally, external ears normal, TM's normal bilaterally and EAC's normal General nose exam: Normal external nose present Face and sinus: Yes normal facial exam and Yes sinuses nontender Mouth: Normal oral and palatal mucosa present and tongue normal Throat: Yes posterior oropharynx normal Eyes General: appearance normal, both eyes and all related structures Conjunctivae: conjunctivae normal Pupils: Equal, round and reactive pupils present EOM: EOMs intact bilaterally and No Nystagmus present Neck Neck: Yes normal visual inspection, Yes full ROM and Yes no lymphadenopathy Chest Chest palpation & inspection: normal inspection of the chest Resp Effort & Inspection: normal respiratory effort Auscultation: clear to auscultation bilaterally, no crackles, no rales, no rhonchi, no wheezes and breath sounds present Cardio Rate: regular rate Rhythm: regular rhythm Peripheral pulses: radial pulses present and dorsalis pedis present GI Inspection: Yes normal to inspection and No Abdominal wall edema Palpation (GI): Soft to palpation, not firm and nontender Auscultation: normal bowel sounds Rectal Exam - Female: deferred General: Yes no CVA tenderness Back/Spine/Pelvis Back: no CVA tenderness Skin General skin exam: no rashes or lesions noted Neuro General: patient oriented x3 Cranial nerves: Yes Equal, round and reactive pupils present, Yes Midline tongue present, Yes Ability to bilaterally elevate shoulders present and No Nystagmus present Gait exam (Neuro): Normal gait present Extrem General: Yes normal to inspection, Yes full ROM, No no pedal edema and No edema Psych Speech and movement: Normal speech and movement present Affect: normal affect Insight: Good insight present (Psych) Judgement: Good judgement present (Psych) Coding Level of Care Code Est Pt Prev Care >65y(73349) Diagnoses Annual physical exam Z00.00 Hypercholesterolemia E78.00 Obesity (BMI 30-39.9) E66.9 Colon cancer screening Z12.11 Blood in the stool K92.1 Assessment & Plan Assessment & Plan (1) Annual physical exam: Code(s): Z00.00 - Encounter for general adult medical examination without abnormal findings Category: Medical Plan: Patient is up-to-date on all recommended routine screenings and vaccinations for her age. Healthy diet and regular exercise is encouraged. Blood work is up-to-date and has been reviewed with the patient today. Plan to follow up in 3 months or sooner as needed (2) Hypercholesterolemia: Comment: ASCVD risk 4.9% 12/2024 Code(s): E78.00 - Pure hypercholesterolemia, unspecified Category: Medical Plan: Avoid foods that are high in cholesterol such as red meat, fried foods, eggs and baked goods. Triglyceride goal of less than 150 and LDL goal of less than 130. Discussed dietary and lifestyle modification. (3) Obesity (BMI 30-39.9): Code(s): E66.9 - Obesity, unspecified Category: Medical Plan: Healthy diet and regular exercise is encouraged. The patient is experiencing progressive weight gain despite dietary modifications and increased physical activity. Options discussed include referral to a weight loss specialist and consideration of pharmacological interventions. The patient is advised to continue current lifestyle modifications and to follow up for further evaluation and management. (4) Colon cancer screening: Code(s): Z12.11 - Encounter for screening for malignant neoplasm of colon Category: Medical Plan: She is scheduled for colonoscopy in March (5) Blood in the stool: Code(s): K92.1 - Melena Category: Medical Plan: has been improving. see above plan Plan This note was constructed using voice recognition software. While every effort has been made to ensure accuracy and geospatial program management officer, still areas may have been included sometimes these areas may affect the content or meeting of the given symptoms. Total time spent caring for the patient today was 40 minutes. This includes time spent before the visit reviewing the chart, time spent during the visit, and time spent after the visit and documentation. Patient was informed and verbally consented to the use of an ambient scribe for clinic note documentation during this visit.
== END 2025-03-06 17:13 | disposition home or self-care (01) ==
LOC: HO.HMCH 16:02
DX: Z00.00 Encounter for general adult medical examination without abnormal findings (principal); E78.00 Pure hypercholesterolemia, unspecified; E66.9 Obesity, unspecified; Z68.39 Body mass index [BMI] 39.0-39.9, adult; Z12.11 Encounter for screening for malignant neoplasm of colon; K92.1 Melena

== ENCOUNTER → 2025-03-06 16:01 | Outpatient (BNVA) | payer MEDICARE, SELFPAY | DX: Z00.00 Encounter for general adult medical examination without abnormal findings (principal); F41.9 Anxiety disorder, unspecified; E66.9 Obesity, unspecified; E78.00 Pure hypercholesterolemia, unspecified; K92.1 Melena; Z68.39 Body mass index [BMI] 39.0-39.9, adult | CPT/HCPCS: 96127; 99397 ==